=== PATIENT | male | born 1980 | race Caucasian/White ===

== ENCOUNTER 2023-08-08 09:49 | Day surgery (SDC) | payer BC ==
[~2023-08-08] VITALS: Ht 170.2 cm; Wt 79.4 kg
[~2023-08-08 09:49] MED LIST: IOHEXOL-300 100 ML BOTTLE ONE
[2023-08-08] MEDS ORDERED: OXYC-100 PO (10:23)
[2023-08-08] MEDS: LACTATED RINGERS 1,000 ML IV SCH (10:44)
[2023-08-08] MEDS ORDERED: DEXAMETHASONE 4MG/ML 1ML VIAL ONE (10:51)
[2023-08-08] MEDS ORDERED: ONDANSETRON HCL 4MG/2ML INJ ONE (10:51)
[2023-08-08] MEDS ORDERED: LIDOCAINE HCL 1% 10 MG/ML 10ML VIAL ONE (10:51)
[2023-08-08] MEDS ORDERED: ROCURONIUM BROMIDE 10MG/ML VIAL 5ML IV ONE (10:52)
[2023-08-08] MEDS ORDERED: PROPOFOL 200MG/20ML VIAL IV ONE (10:52)
[2023-08-08] MEDS ORDERED: FENTANYL CITRATE/PF 50MCG/ML 2ML VIAL ONE (10:52)
[2023-08-08] MEDS ORDERED: MIDAZOLAM HCL 2 MG/2 ML VIAL ONE (10:52)
[2023-08-08] MEDS ORDERED: ONDANSETRON HCL 4MG/2ML INJ IV PRN (12:30)
[2023-08-08] MEDS ORDERED: ACETAMINOPHEN 1000MG/100ML 100 ML IV ONE (12:30)
[2023-08-08] MEDS ORDERED: FENTANYL CITRATE/PF 50MCG/ML 2ML VIAL IV PRN (12:30)
[2023-08-08 13:16] VITALS: BP 136/93; PULSE 69; RESP 15
[2023-08-08] MEDS: HYDROMORPHONE HCL/PF 2MG/ML CPJ IV PRN (13:16)
== END 2023-08-08 14:18 | disposition home or self-care (01) ==
LOC: OR 09:49
PROVIDERS: ATTEND Specialist
DX: N13.2 Hydronephrosis with renal and ureteral calculous obstruction (principal); E78.00 Pure hypercholesterolemia, unspecified; Z79.899 Other long term (current) drug therapy; Z98.890 Other specified postprocedural states; Z88.2 Allergy status to sulfonamides
CPT/HCPCS: 52353; 74430; J3010; Q9967; J1100; J3490 ×2; J2250; J2405; J2704; J1170; C1769; J0131

== ENCOUNTER 2023-12-16 16:16 | Emergency (ER) | payer BC ==
[~2023-12-16 16:16] MED LIST changes: -IOHEXOL-300 100 ML BOTTLE ONE; +OXYC-100 PO
[2023-12-16 16:20] VITALS: BP 118/78; PULSE 79; RESP 18; TEMP 36.89184; O2SAT 99
== END 2023-12-16 17:03 | disposition home or self-care (01) ==
LOC: ER 16:16
DX: N13.2 Hydronephrosis with renal and ureteral calculous obstruction (principal); Z88.2 Allergy status to sulfonamides
CPT/HCPCS: 74176; 99284

== ENCOUNTER → 2024-01-01 | Day surgery (SDC) | payer BC ==
[2024-01-01] VITALS (12 sets, daily range): BP systolic 128–143; BP diastolic 80–90; PULSE 76–92; RESP 10–14; O2SAT 100
[~2024-01-01] VITALS: Ht 167.6 cm; Wt 83.1 kg
[~2024-01-01] MED LIST changes: +DEXAMETHASONE 4MG/ML 1ML VIAL ONE; +FENTANYL CITRATE/PF 50MCG/ML 2ML VIAL ONE; +HYDROMORPHONE HCL/PF 1MG/ML INJ IV PRN; +HYDROMORPHONE HCL/PF 2MG/ML INJ ONE; +IOHEXOL-300 50 ML BOTTLE IV ONE; +LABETALOL 5MG/ML 4ML INJ IV PRN; +LIDOCAINE HCL 1% 10 MG/ML 10ML VIAL ONE; +LIDOCAINE HCL 1% 20ML VIAL ONE; +LOSA50TA41 PO; +MEPERIDINE HCL/PF 25MG/ML CPJ IV PRN; +MIDAZOLAM HCL 2 MG/2 ML VIAL ONE; +ONDANSETRON HCL 4MG/2ML INJ ONE; -OXYC-100 PO; +PROPOFOL 200MG/20ML VIAL IV ONE; +TAMS-11 PO
[2024-01-01] MEDS: LACTATED RINGERS 1,000 ML IV SCH (06:30)
[2024-01-01] MEDS: ONDANSETRON HCL 4MG/2ML INJ IV PRN (09:55)
[2024-01-01] MEDS: ACETAMINOPHEN 1000MG/100ML 100 ML IV NR (10:55)
[2024-01-01] MEDS: PROCHLORPERAZINE 10MG/2ML VIAL IV NR (10:55)
[2024-01-01] MEDS: FENTANYL CITRATE/PF 50MCG/ML 2ML VIAL IV NR (11:55)
== END | disposition home or self-care (01) ==
LOC: OR 05:56
PROVIDERS: ATTEND Specialist
DX: N13.2 Hydronephrosis with renal and ureteral calculous obstruction (principal); N35.919 Unspecified urethral stricture, male, unspecified site; I10 Essential (primary) hypertension; Z79.899 Other long term (current) drug therapy; Z98.890 Other specified postprocedural states; Z88.1 Allergy status to other antibiotic agents
CPT/HCPCS: 52353; 50432; 74430; 93005; J3010; Q9967; J1100; J3490 ×2; J2250; J2405; J0780; J2704; J1171; C1729; C1769 ×2; C1760; 76000; 99152; 99153; L8514; G0500; J0131